=== PATIENT | female | born 1945 | race Caucasian/White ===

== ENCOUNTER → 2016-12-04 | Outpatient (CLI) | payer OTHER, MEDICARE | LOC: RAD 06:26 | DX: Z12.31 Encounter for screening mammogram for malignant neoplasm of breast (principal) ==

== ENCOUNTER → 2017-12-14 | Outpatient (CLI) | payer OTHER, MEDICARE | LOC: RAD 01:11 | DX: Z12.31 Encounter for screening mammogram for malignant neoplasm of breast (principal) ==

== ENCOUNTER → 2018-12-15 | Outpatient (CLI) | payer OTHER, MEDICARE | LOC: RAD 01:54 | DX: Z12.31 Encounter for screening mammogram for malignant neoplasm of breast (principal) ==

== ENCOUNTER → 2020-01-11 | Outpatient (CLI) | payer OTHER, MEDICARE | LOC: RAD 09:49 | PROVIDERS: ATTEND Internal Medicine | DX: Z12.31 Encounter for screening mammogram for malignant neoplasm of breast (principal) ==